=== PATIENT | male | born 1965 | race Caucasian/White ===

== ENCOUNTER 2018-02-07 11:44 | Inpatient (IN) | payer OTHER ==
[~2018-02-07 11:44] MED LIST: CEFAZOLIN 1 GM/50 ML (PMX) 50 ML IVPB; SOD CHLORIDE 0.45% 1,000 ML IV
[2018-02-07 13:26] LABS: ADD MAN DIFF? NO
[2018-02-07 13:28] LABS: BASOPHIL # 0.1 10^3/ul (0.0-0.1); BASOPHILS % 1.1 % (0.0-2.0); EOSINOPHILS # 0.2 10^3/ul (0.0-0.5); EOSINOPHILS % 2.3 % (0.0-7.0); HEMATOCRIT 38.3 % (42.0-52.0); HEMOGLOBIN 11.6 g/dl (14.0-18.0); LYMPHOCYTES # 2.5 10^3/ul (0.8-2.9); MEAN CORPUSCULAR HEMOGLOBIN 22.8 pg (29.0-33.0); MEAN CORPUSCULAR HGB CONC 30.3 g/dl (32.0-37.0); MEAN CORPUSCULAR VOLUME 75.4 fl (82.0-101.0); MEAN PLATELET VOLUME 9.3 fl (7.4-10.4); MONOCYTE # 0.5 10^3/ul (0.3-0.9); MONOCYTES % 5.4 % (0.0-11.0); NEUTROPHIL # 5.7 10^3/ul (1.6-7.5); NEUTROPHILS % 62.9 % (39.0-77.0); PLATELET COUNT 316 10^3/UL (140-415); RED BLOOD COUNT 5.08 10^6/ul (4.70-6.10)
[2018-02-07 13:28] LABS: WHITE BLOOD COUNT 9.1 10^3/ul (4.8-10.8)
[2018-02-07] MEDS ORDERED: DIAZEPAM 5 MG TAB PO (13:30)
[2018-02-07 13:52] LABS: INR 0.99; PROTIME 13.2 Sec (11.9-14.9)
[2018-02-07 13:53] LABS: ANION GAP 16 (8-16); CARBON DIOXIDE 26 mmol/L (21-31); CHLORIDE 109 mmol/L (97-110); CHOL/HDL RATIO 4.7 RATIO; CHOLESTEROL 128 mg/dl (100-200); GLUCOSE 102 mg/dl (70-220); HDL CHOLESTEROL 27 mg/dl (28-71); LDL CHOLESTEROL,CALCULATED 74 mg/dl; PARTIAL THROMBOPLASTIN TIME 32.9 Sec (25.0-35.0); TRIGLYCERIDES 135 mg/dl (0-149)
[2018-02-07 14:06] LABS: BLOOD UREA NITROGEN 15 mg/dl (7-20); CALCIUM 9.1 mg/dl (8.4-10.2); CREATININE 0.36 mg/dl (0.61-1.24); POTASSIUM 3.7 mmol/L (3.5-5.1); SODIUM 147 mmol/L (135-144)
[2018-02-07] MEDS ORDERED: IOHEXOL 350MG/ML 50 ML BTL (14:15)
[2018-02-07] MEDS ORDERED: LIDOCAINE 1% (MDV) 20 ML INJ (14:15)
[2018-02-07] MEDS ORDERED: ARTIFICIAL TEARS 15 ML OPH BOTH EYES (15:30)
[2018-02-07] MEDS ORDERED: ONDANSETRON 4 MG INJ IV ×2 (15:30)
[2018-02-07] MEDS ORDERED: ALBUTEROL/IPRATROPIUM (NEB) 3 ML AMP HHN (15:30)
[2018-02-07] MEDS ORDERED: HYDROmorphONE (0.2 MG/ML) 10ML SYG IV ×3 (15:30)
[2018-02-07] MEDS ORDERED: HYDROCODONE/APAP (5/325) TAB PO (15:30)
[2018-02-07] MEDS ORDERED: NACL 0.9% 3 ML SYG IV (15:30)
[2018-02-07] MEDS ORDERED: GUAIFENESIN/DM 5ML CUP PO (15:30)
[2018-02-07] MEDS ORDERED: FENTAnyl 50 MCG/ML VIAL IV ×3 (15:30)
[2018-02-07] MEDS ORDERED: POLYETHYLENE GLYCOL 17 GM PACKET PO (15:30)
[2018-02-07 16:13] LABS: IRON 44 ug/dl (35-150)
[2018-02-07 16:22] LABS: % IRON SATURATION 16 % SAT (22-52); TOTAL IRON BINDING CAPACITY 276 ug/dl (241-421)
[2018-02-07 16:38] LABS: FERRITIN 68.8 ng/ml (11.1-264.0)
[2018-02-07] MEDS ORDERED: DOCUSATE SODIUM 100 MG CAP PO (21:00)
[2018-02-07] MEDS: CEFAZOLIN 1 GM/50 ML (PMX) 50 ML IVPB (22:10)
[2018-02-07] MEDS: SENNA TAB PO (23:08)
[2018-02-07] MEDS: ACETAMINOPHEN 325 MG TAB PO (23:08)
[2018-02-07] MEDS: DOCUSATE SODIUM 100 MG CAP PO (23:09)
[2018-02-08] MEDS: CEFAZOLIN 1 GM/50 ML (PMX) 50 ML IVPB ×2 (05:49→14:55)
[2018-02-08 07:55] LABS: WHITE BLOOD COUNT 8.6 10^3/ul (4.8-10.8)
[2018-02-08 07:55] LABS: HEMATOCRIT 35.8 % (42.0-52.0); HEMOGLOBIN 10.6 g/dl (14.0-18.0); MEAN CORPUSCULAR HEMOGLOBIN 22.7 pg (29.0-33.0); MEAN CORPUSCULAR HGB CONC 29.6 g/dl (32.0-37.0); MEAN CORPUSCULAR VOLUME 76.8 fl (82.0-101.0); MEAN PLATELET VOLUME 10.8 fl (7.4-10.4); POSITIVE DIFF @See below; RED BLOOD COUNT 4.66 10^6/ul (4.70-6.10); RED CELL DISTRIBUTION WIDTH 17.2 % (11.5-14.5)
[2018-02-08 08:07] LABS: ADD MAN DIFF? YES; PLATELET COUNT 212 10^3/UL (140-415)
[2018-02-08 08:19] LABS: ANION GAP 15 (8-16); BLOOD UREA NITROGEN 19 mg/dl (7-20); CALCIUM 8.7 mg/dl (8.4-10.2); CARBON DIOXIDE 26 mmol/L (21-31); CHLORIDE 108 mmol/L (97-110); CREATININE 0.42 mg/dl (0.61-1.24); GLUCOSE 96 mg/dl (70-220); POTASSIUM 3.8 mmol/L (3.5-5.1); SODIUM 145 mmol/L (135-144)
[2018-02-08] MEDS: BUPROPION (XL) 150 MG TAB PO (08:38)
[2018-02-08] MEDS: ZINC SULFATE 220 MG CAP PO (08:39)
[2018-02-08] MEDS: DOCUSATE SODIUM 100 MG CAP PO (08:39)
[2018-02-08] MEDS: ASCORBIC ACID 500 MG TAB PO (08:39)
[2018-02-08 08:52] LABS: HEMOGLOBIN A1C 5.4 % (0-5.9)
[2018-02-08 08:57] LABS: MAGNESIUM 1.9 mg/dl (1.7-2.5)
[2018-02-08 10:01] LABS: ANISOCYTOSIS 2+ (0-0); BAND NEUTROPHILS #M 0.1 10^3/ul (0.0-0.6); BAND NEUTROPHILS % (M) 2 % (0-4); BASOPHILS % (M) 1 % (0-2); EOSINOPHILS % (M) 2 % (0-7); ERYTHROBLAST% (NRBC) (M) 1 % (0-0); HYPOCHROMASIA 2+ (0-0); LYMPHOCYTES #M 2.6 10^3/ul (0.8-2.9); LYMPHOCYTES % (M) 31 % (15-51); MICROCYTOSIS 1+ (0-0); MONOCYTES % (M) 12 % (0-11); PLATELET ESTIMATE NORMAL; POIKILOCYTOSIS 1+ (0-0); POLYCHROMASIA 1+ (0-0); SEG NEUT #M 4.5 10^3/ul (1.6-7.5); SEGMENTED NEUTROPHILS (M) % 52 % (39-77); SMUDGE%M 18 % (0-0)
== END 2018-02-08 18:53 | DRG 259 ==
LOC: SDS 11:44 → TEL 15:09
PROC: 0JPT0PZ Removal of Cardiac Rhythm Related Device from Trunk Subcutaneous Tissue and Fascia, Open Approach (ICD-10-PCS; principal; 2018-02-07 13:30)
PROC: 0JH606Z Insertion of Pacemaker, Dual Chamber into Chest Subcutaneous Tissue and Fascia, Open Approach (ICD-10-PCS; 2018-02-07 13:30)
DX: I49.5 Sick sinus syndrome (principal); E87.0 Hyperosmolality and hypernatremia; G82.20 Paraplegia, unspecified; L89.159 Pressure ulcer of sacral region, unspecified stage; I42.9 Cardiomyopathy, unspecified; I95.9 Hypotension, unspecified; N31.2 Flaccid neuropathic bladder, not elsewhere classified; S14.109S Unspecified injury at unspecified level of cervical spinal cord, sequela; D64.9 Anemia, unspecified; E86.9 Volume depletion, unspecified; F17.200 Nicotine dependence, unspecified, uncomplicated; K63.89 Other specified diseases of intestine; V89.2XXS Person injured in unspecified motor-vehicle accident, traffic, sequela; Z93.51 Cutaneous-vesicostomy status
CPT/HCPCS: 33228; 71045; 80048; 80061; 82728; 83036; 83540; 83735; 84100; 84443; 85025; 85610; 85730; 93005